=== PATIENT | female | born 1945 | race Caucasian/White ===

== ENCOUNTER → 2016-09-18 | Outpatient (CLI) | payer MEDICARE, OTHER ==
[~2016-09-18] MED LIST: ARIP10TA9 PO; ASPI-611 PO; ESZO1TAB5 PO; FENO145T10 PO; HYDR-969 PO; LEVO25TA51 PO; LISI-126 PO; METH750T89 PO; METO100T93 PO; OMEG300C PO; TOPI25TA36 PO; TRAM-277 PO; VENL150C42 PO; [UNRECOGNIZED DRUG - CODE] PO
== END ==
LOC: WC.BC 13:14
DX: Z12.31 Encounter for screening mammogram for malignant neoplasm of breast (principal)
CPT/HCPCS: 77063; G0202